=== PATIENT | male | born 1985 | race Caucasian/White ===

== ENCOUNTER 2017-04-29 03:13 | Emergency (ER) | payer SELFPAY ==
[~2017-04-29] VITALS: Ht 177.8 cm; Wt 90.0 kg
[~2017-04-29 03:13] MED LIST: CARB200T16 PO; DEPA500T PO
[2017-04-29 03:22] VITALS: BP 139/82; PULSE 83; RESP 18; TEMP 98.4; O2SAT 96
[2017-04-29] MEDS ORDERED: TEGR200T PO (03:22)
[2017-04-29] MEDS ORDERED: DEPA500T3 PO (03:22)
--- NOTE | 2017-04-29 04:48 | PD ---
HPI Chief Complaint: Seizure Time Seen by Provider: 03:19 Travel History International Travel<30 days: No Contact w/Intl Traveler<30days: No Traveled to known affect area: No History of Present Illness HPI Patient is a 32-year-old male with a history of drug abuse now in a skilled nursing home presents emergency department with a breakthrough seizure. He states he has a history of epilepsy and is formally on Depakote and Tegretol but is not allowed to have Tegretol and his facility now because of abuse potential. He states he does not think this is a bad seizure and feels fine now, denies any tongue biting loss of urine. Denies any drug abuse now. Denies any headache neck pain back pain abdomen pain or chest pain. States symptoms are resolved, context as above, associated sinus symptoms as above, mild. PFSH Past Medical History Depression: Yes Cardiovascular Problems: Yes (SEIZURES) Seizures: Yes Tetanus Vaccination: < 5 Years Influenza Vaccination: Yes Past Surgical History Other Surgery: Yes (RIGHT ANKLE SURGERY TIB/FIB) Social History Alcohol Use: No Tobacco Use: No Substance Use: No (PAST) Allergies-Medications (Allergen,Severity, Reaction): Coded Allergies: erythromycin base (Verified Allergy, Unknown, 04/29/17) Reported Meds & Prescriptions Reported Meds & Active Scripts Active Reported Depakote ER (Divalproex Sodium) 500 Mg Ezequiel 500 Mg PO TID Tegretol (Carbamazepine) 200 Mg Tab 200 Mg PO BID Review of Systems Except as stated in HPI: all other systems reviewed are Neg Physical Exam Narrative GENERAL: Well-developed well-nourished no acute distress SKIN: Focused skin assessment warm/dry. No visible signs of trauma HEAD: Atraumatic. Normocephalic. EYES: Pupils equal and round. No scleral icterus. No injection or drainage. ENT: No nasal bleeding or discharge. Mucous membranes pink and moist. No tongue laceration NECK: Trachea midline. No JVD. CARDIOVASCULAR: Regular rate and rhythm. No murmur appreciated. RESPIRATORY: No accessory muscle use. Clear to auscultation. Breath sounds equal bilaterally. GASTROINTESTINAL: Abdomen soft, non-tender, nondistended. Hepatic and splenic margins not palpable. MUSCULOSKELETAL: No obvious deformities. No clubbing. No cyanosis. No edema. No midline CT or L-spine tenderness. Extremities atraumatic. NEUROLOGICAL: Awake and alert. Renal nerves II through XII grossly intact and nonfocal, 5 out of 5 strength in all 4 extremities PSYCHIATRIC: Appropriate mood and affect; insight and judgment normal. Data Data Last Documented VS Vital Signs Date Time Temp Pulse Resp B/P (MAP) Pulse Ox O2 Delivery O2 Flow Rate FiO2 04/29/17 03:22 98.4 83 18 139/82 (101) 96 Orders Orders Valproic Acid (Depakene) (04/29/17 03:15) Ed Discharge Order (04/29/17 04:54) Labs Laboratory Tests Test 04/29/17 03:40 Valproic Acid (Depakene) Level 81 MCG/ML MDM Medical Decision Making Medical Screen Exam Complete: Yes Emergency Medical Condition: Yes Differential Diagnosis Recurrent seizure, breakthrough seizure, epilepsy, subtherapeutic Depakote levels, Narrative Course Patient room to the emergency department, quite pleasant in no obvious distress states the seizure today was mild, Depakote level is therapeutic. Discussed with the patient possibly adding Keppra though the patient states has not worked for him in the past, he states he will discuss with his facility physician about adding Dilantin. Patient seems to have an adequate grasp on his medical condition and wishes for discharge so we can have visitation later today. I think this is reasonable. Diagnosis Primary Impression: Breakthrough seizure Referrals: Aaron Pablo MD Disposition: 01 DISCHARGE HOME Condition: Stable Anival Castle MD Apr 29, 2017 04:48
== END 2017-04-29 05:57 | disposition home or self-care (01) ==
LOC: NEPE 03:13
DX: G40.909 Epilepsy, unspecified, not intractable, without status epilepticus (principal); F32.9 Major depressive disorder, single episode, unspecified
CPT/HCPCS: 80164; 99283